=== PATIENT | male | born 1980 | race Caucasian/White ===

== ENCOUNTER 2019-06-23 08:26 | Emergency (ER) | payer MEDICAID ==
[~2019-06-23] VITALS: Ht 177.8 cm; Wt 70.0 kg
[2019-06-23 08:40] VITALS: BP 154/96
[2019-06-23] MEDS ORDERED: TETRACAINE 0.5% OPHTH DROPS 4ML LEFTEYE ONE (09:45)
[2019-06-23] MEDS ORDERED: FLUORESCEIN SODIUM 1MG/STRIP LEFTEYE ONE (09:45)
== END 2019-06-23 10:37 | disposition home or self-care (01) ==
LOC: ER 08:26
DX: H05.012 Cellulitis of left orbit (principal); I10 Essential (primary) hypertension; E78.5 Hyperlipidemia, unspecified; Z88.8 Allergy status to other drugs, medicaments and biological substances; Z94.0 Kidney transplant status; Z94.4 Liver transplant status
CPT/HCPCS: 99283

== ENCOUNTER 2019-06-24 20:14 | Inpatient (IN) | payer MEDICAID ==
[~2019-06-24] VITALS: Ht 180.3 cm; Wt 64.9 kg
[2019-06-24] MEDS ORDERED: SODIUM CHLORIDE 0.9% 1,000 ML IV ONE (21:34)
[2019-06-24 22:08] LABS: BASOPHILS % 1.3 % (0.0-2.0); EOSINOPHILS % 11.5 % (0.0-5.0); HEMATOCRIT. 25.5 % (42.0-52.0); HEMOGLOBIN. 8.9 g/dL (14.0-18.0); LYMPHOCYTES % 35.7 % (20.0-50.0); MEAN CORPUSCULAR HEMOGLOBIN 35.1 pg (28.0-32.0); MEAN CORPUSCULAR VOLUME 100.7 fL (80.0-94.0); MEAN PLATELET VOLUME 9.7 fl (7.4-10.4); NEUTROPHILS % 42.5 % (40.0-76.0); PLATELET 91 x1000/uL (130-400); RED BLOOD CELL COUNT 2.53 mill/uL (4.7-6.1); RED CELL DISTRIBUTION WIDTH 15.2 % (11.6-14.6)
[2019-06-24 22:10] LABS: CHLORIDE 107 mEq/L (98-107)
[2019-06-24 22:12] LABS: INR 1.1; PARTIAL THROMBOPLASTIN TIME 31.1 sec (23.4-31.0); PROTHROMBIN TIME 11.2 sec (9.6-11.0)
[2019-06-24 22:17] LABS: PHOSPHORUS 5.7 mg/dL (2.5-4.9)
[2019-06-24 22:26] LABS: CLARITY URINE CLEAR (CLEAR); COLOR URINE YELLOW (YELLOW); KETONES URINE NEGATIVE (NEGATIVE); LEUKOCYTE ESTERASE URINE NEGATIVE (NEGATIVE); NITRITE URINE NEGATIVE (NEGATIVE); OCCULT BLOOD URINE 1+ (NEGATIVE); PH URINE 6.5 (4.5-8.0); PROTEIN URINE 1+ (NEGATIVE); SPECIFIC GRAVITY URINE 1.004 (1.005-1.030); UROBILINOGEN URINE 0.2 E.U./dL (0.2-1.0)
[2019-06-24 22:49] LABS: BG CARBOXYHEMOGLOBIN 0.3 % (0.5-1.5); BG DEOXYHEMOGLOBIN 2.5 % (0.0-5.0); BG FRACTION INSPIRED OXYGEN 21; BG HCO3 ACT 13.1 mmol/L (22.0-26.0); BG OXYGEN SATURATION 97.5 % (92.0-98.5); BG OXYHEMOGLOBIN 97.2 % (94.0-97.0); BG PCO2 30.6 mmHg (35.0-45.0); BG PH 7.248 (7.350-7.450); BG PO2 113.3 mmHg (75.0-100.0); BG SAMPLE SITE RIGHT RADIAL; BG TOTAL HEMOGLOBIN 8.6 g/dL (12.0-18.0); BG VENT MODE ROOM AIR
[2019-06-24] MEDS ORDERED: HYDROCODONE/ACETAMINOPHEN 5/325MG TABLET PO ONE (23:15)
[2019-06-24] MEDS ORDERED: SODIUM BICARBONATE 8.4% 1 MEQ/ML 50ML SYR IV ONE (23:15)
[2019-06-25] VITALS (16 sets, daily range): BP systolic 120–193; BP diastolic 81–114
[2019-06-25] MEDS ORDERED: LEVO112T7 PO (01:41)
[2019-06-25] MEDS ORDERED: NEOM7.5D8 LEFTEYE (01:41)
[2019-06-25] MEDS ORDERED: TYLENOL CODEINE PO (01:41)
[2019-06-25] MEDS ORDERED: PROG1 MT (01:41)
[2019-06-25] MEDS ORDERED: CEPH500C2 PO (01:41)
[2019-06-25] MEDS ORDERED: CLONIDINE 0.1MG TABLET PO PRN (02:15)
[2019-06-25 06:48] LABS: HEMATOCRIT 23.4 % (42.0-52.0); HEMOGLOBIN 8.1 g/dL (14.0-18.0); MEAN CORPUSCULAR HEMOGLOBIN 34.9 pg (28.0-32.0); MEAN CORPUSCULAR VOLUME 100.2 fL (80.0-94.0); PLATELET 79 x1000/uL (130-400); RED BLOOD CELL COUNT 2.34 mill/uL (4.7-6.1); RED CELL DISTRIBUTION WIDTH 15.4 % (11.6-14.6)
[2019-06-25] MEDS: CEPHALEXIN 250MG CAPSULE PO SCH (08:18)
[2019-06-25] MEDS: TACROLIMUS 1MG CAPSULE PO SCH ×2 (08:19→17:37)
[2019-06-25] MEDS: HYDROCODONE/ACETAMINOPHEN 10/325MG TABLET PO PRN (08:21)
[2019-06-25] MEDS: NEOMYCIN LEFTEYE SCH ×2 (08:22→17:37)
[2019-06-25] MEDS: POLYMYXIN B LEFTEYE SCH ×2 (08:22→17:37)
[2019-06-25] MEDS: DEXAMETHASONE LEFTEYE SCH ×2 (08:22→17:37)
[2019-06-25] MEDS: LEVOTHYROXINE SODIUM 112MCG TABLET PO SCH (09:40)
[2019-06-25 11:01] LABS: TOTAL IRON BINDING CAPACITY 230 ug/dL (250-450)
[2019-06-25 11:19] LABS: FOLIC ACID (FOLATE) SERUM >20 ng/mL ng/mL (>5.38)
[2019-06-25 11:30] LABS: VITAMIN B12 SERUM 641 pg/mL (211-911)
[2019-06-25] MEDS ORDERED: FENTANYL CITRATE/PF 50MCG/ML 2ML VIAL ONE (11:39)
[2019-06-25] MEDS ORDERED: SODIUM BICARBONATE 4% (2.4MEQ) 5ML VIAL IV ONE (11:39)
[2019-06-25] MEDS ORDERED: LIDOCAINE HCL 1% 20ML VIAL (Pyxis) INJ ONE (11:39)
[2019-06-25 13:21] LABS: PHOSPHORUS 5.6 mg/dL (2.5-4.9)
[2019-06-25] MEDS ORDERED: FENTANYL CITRATE/PF 50MCG/ML 2ML VIAL IV ONE (13:30)
[2019-06-25] MEDS: METHYLPREDNISOLONE SOD SUCC 125 MG/2 ML VIAL IV SCH ×3 (14:00→21:04)
[2019-06-25] MEDS: AMLODIPINE 5MG TABLET PO SCH ×2 (17:00→17:38)
[2019-06-25] MEDS: SODIUM CHLORIDE 0.9% 1,000 ML IV SCH ×2 (17:36→23:15)
[2019-06-25] MEDS: SODIUM BICARBONATE 650 MG TABLET PO SCH (17:38)
[2019-06-25] MEDS ORDERED: EPOETIN ALFA 10000UNITS/ML VIAL SUBCUT NR (21:00)
[2019-06-25] MEDS: ATORVASTATIN CALCIUM 20MG TABLET PO SCH (21:04)
[2019-06-26] VITALS: BP 142/93
[2019-06-26 04:00] VITALS: BP 123/83
[2019-06-26] MEDS: METHYLPREDNISOLONE SOD SUCC 125 MG/2 ML VIAL IV SCH ×3 (05:20→21:25)
[2019-06-26] MEDS: HYDROCODONE/ACETAMINOPHEN 10/325MG TABLET PO PRN ×2 (05:52→18:29)
[2019-06-26 06:20] LABS: BASOPHILS % 0.1 % (0.0-2.0); EOSINOPHILS % 0.3 % (0.0-5.0); HEMATOCRIT. 25.7 % (42.0-52.0); LYMPHOCYTES % 20.8 % (20.0-50.0); MEAN CORPUSCULAR HEMOGLOBIN 34.9 pg (28.0-32.0); MEAN PLATELET VOLUME 9.9 fl (7.4-10.4); MONOCYTES % 1.7 % (2.0-8.0); NEUTROPHILS % 77.1 % (40.0-76.0); PLATELET 90 x1000/uL (130-400); RED BLOOD CELL COUNT 2.57 mill/uL (4.7-6.1); RED CELL DISTRIBUTION WIDTH 15.3 % (11.6-14.6)
[2019-06-26] MEDS: LEVOTHYROXINE SODIUM 112MCG TABLET PO SCH (07:49)
[2019-06-26] MEDS: CEPHALEXIN 250MG CAPSULE PO SCH (08:37)
[2019-06-26] MEDS: TACROLIMUS 1MG CAPSULE PO SCH ×2 (08:37→18:29)
[2019-06-26] MEDS: SODIUM BICARBONATE 650 MG TABLET PO SCH ×3 (08:37→18:29)
[2019-06-26] MEDS: NEOMYCIN LEFTEYE SCH ×2 (08:38→18:30)
[2019-06-26] MEDS: DEXAMETHASONE LEFTEYE SCH ×2 (08:38→18:30)
[2019-06-26] MEDS: POLYMYXIN B LEFTEYE SCH ×2 (08:38→18:30)
[2019-06-26] MEDS: AMLODIPINE 5MG TABLET PO SCH ×2 (08:38→18:28)
[2019-06-26] MEDS ORDERED: AMLODIPINE 2.5MG TABLET PO SCH (09:00)
[2019-06-26] MEDS: SEVELAMER CARBONATE 800 MG TABLET PO SCH ×3 (09:34→18:29)
[2019-06-26 12:00] VITALS: BP 131/82
[2019-06-26] MEDS: SODIUM CHLORIDE 0.9% 1,000 ML IV SCH (12:55)
[2019-06-26 17:58] VITALS: BP 127/91
[2019-06-26] MEDS ORDERED: LACTULOSE 20G/30ML UDC PO PRN (19:30)
[2019-06-26 20:00] VITALS: BP 130/85
[2019-06-26] MEDS: ATORVASTATIN CALCIUM 20MG TABLET PO SCH (20:46)
[2019-06-27] VITALS: BP 125/82
[2019-06-27 04:00] VITALS: BP 125/82
[2019-06-27] MEDS: SODIUM CHLORIDE 0.9% 1,000 ML IV SCH ×2 (04:44→16:41)
[2019-06-27] MEDS: METHYLPREDNISOLONE SOD SUCC 125 MG/2 ML VIAL IV SCH ×3 (05:08→21:02)
[2019-06-27 07:08] LABS: BASOPHILS % 0.1 % (0.0-2.0); HEMATOCRIT. 25.6 % (42.0-52.0); HEMOGLOBIN. 8.8 g/dL (14.0-18.0); MEAN CORPUSCULAR HEMOGLOBIN 35.1 pg (28.0-32.0); MEAN CORPUSCULAR VOLUME 102.2 fL (80.0-94.0); MEAN PLATELET VOLUME 10.2 fl (7.4-10.4); MONOCYTES % 2.8 % (2.0-8.0); NEUTROPHILS % 87.1 % (40.0-76.0); PLATELET 90 x1000/uL (130-400); RED CELL DISTRIBUTION WIDTH 15.7 % (11.6-14.6)
[2019-06-27 08:00] VITALS: BP 135/84
[2019-06-27] MEDS: SEVELAMER CARBONATE 800 MG TABLET PO SCH ×3 (08:05→16:42)
[2019-06-27] MEDS: NEOMYCIN LEFTEYE SCH ×2 (09:46→16:41)
[2019-06-27] MEDS: DEXAMETHASONE LEFTEYE SCH ×2 (09:46→16:41)
[2019-06-27] MEDS: AMLODIPINE 5MG TABLET PO SCH ×2 (09:46→16:42)
[2019-06-27] MEDS: SODIUM BICARBONATE 650 MG TABLET PO SCH ×3 (09:46→16:41)
[2019-06-27] MEDS: CEPHALEXIN 250MG CAPSULE PO SCH (09:46)
[2019-06-27] MEDS: POLYMYXIN B LEFTEYE SCH ×2 (09:46→16:41)
[2019-06-27] MEDS: TACROLIMUS 1MG CAPSULE PO SCH ×2 (09:47→16:42)
[2019-06-27] MEDS: LEVOTHYROXINE SODIUM 112MCG TABLET PO SCH (09:47)
[2019-06-27] MEDS: HYDROCODONE/ACETAMINOPHEN 10/325MG TABLET PO PRN ×2 (09:47→22:19)
[2019-06-27 12:00] VITALS: BP 127/84
[2019-06-27 16:00] VITALS: BP 118/71
[2019-06-27 20:00] VITALS: BP 123/79
[2019-06-27] MEDS: ATORVASTATIN CALCIUM 20MG TABLET PO SCH (21:02)
[2019-06-28] VITALS: BP 116/81
[2019-06-28 04:00] VITALS: BP 125/82
[2019-06-28] MEDS: SODIUM CHLORIDE 0.9% 1,000 ML IV SCH ×2 (05:27→19:29)
[2019-06-28] MEDS: METHYLPREDNISOLONE SOD SUCC 125 MG/2 ML VIAL IV SCH ×3 (05:28→21:42)
[2019-06-28 07:21] LABS: BASOPHILS % 0.1 % (0.0-2.0); HEMOGLOBIN. 9.3 g/dL (14.0-18.0); LYMPHOCYTES % 10.8 % (20.0-50.0); MEAN CORPUSCULAR HEMOGLOBIN 34.9 pg (28.0-32.0); MEAN CORPUSCULAR VOLUME 101.4 fL (80.0-94.0); MEAN PLATELET VOLUME 10.1 fl (7.4-10.4); MONOCYTES % 2.5 % (2.0-8.0); NEUTROPHILS % 86.6 % (40.0-76.0); PLATELET 115 x1000/uL (130-400); RED BLOOD CELL COUNT 2.66 mill/uL (4.7-6.1); RED CELL DISTRIBUTION WIDTH 15.9 % (11.6-14.6)
[2019-06-28 08:00] VITALS: BP 130/89
[2019-06-28] MEDS ORDERED: LISINOPRIL 10MG TABLET PO SCH (09:00)
[2019-06-28] MEDS: SODIUM BICARBONATE 650 MG TABLET PO SCH ×3 (09:49→16:51)
[2019-06-28] MEDS: LEVOTHYROXINE SODIUM 112MCG TABLET PO SCH (09:50)
[2019-06-28] MEDS: CEPHALEXIN 250MG CAPSULE PO SCH (09:50)
[2019-06-28] MEDS: SEVELAMER CARBONATE 800 MG TABLET PO SCH ×3 (09:50→16:51)
[2019-06-28] MEDS: TACROLIMUS 1MG CAPSULE PO SCH ×2 (09:50→16:51)
[2019-06-28] MEDS: POLYMYXIN B LEFTEYE SCH ×2 (09:51→16:51)
[2019-06-28] MEDS: DEXAMETHASONE LEFTEYE SCH ×2 (09:51→16:51)
[2019-06-28] MEDS: NEOMYCIN LEFTEYE SCH ×2 (09:51→16:51)
[2019-06-28 12:00] VITALS: BP 129/87
[2019-06-28] MEDS: HYDROCODONE/ACETAMINOPHEN 10/325MG TABLET PO PRN (12:29)
[2019-06-28] MEDS: CALCITRIOL 0.25MCG CAPSULE PO SCH (13:44)
[2019-06-28 16:00] VITALS: BP 113/78
[2019-06-28 20:00] VITALS: BP 108/68
[2019-06-28] MEDS: ATORVASTATIN CALCIUM 20MG TABLET PO SCH (21:42)
[2019-06-29] VITALS (7 sets, daily range): BP systolic 117–135; BP diastolic 60–86
[2019-06-29] MEDS: HYDROCODONE/ACETAMINOPHEN 10/325MG TABLET PO PRN (02:15)
[2019-06-29] MEDS: METHYLPREDNISOLONE SOD SUCC 125 MG/2 ML VIAL IV SCH ×2 (06:35→13:44)
[2019-06-29] MEDS: CALCITRIOL 0.25MCG CAPSULE PO SCH (09:41)
[2019-06-29] MEDS: SEVELAMER CARBONATE 800 MG TABLET PO SCH ×3 (09:42→16:53)
[2019-06-29] MEDS: LEVOTHYROXINE SODIUM 112MCG TABLET PO SCH (09:42)
[2019-06-29] MEDS: CEPHALEXIN 250MG CAPSULE PO SCH (09:42)
[2019-06-29] MEDS: SODIUM BICARBONATE 650 MG TABLET PO SCH ×3 (09:42→16:53)
[2019-06-29] MEDS: TACROLIMUS 1MG CAPSULE PO SCH ×2 (09:42→16:53)
[2019-06-29] MEDS: POLYMYXIN B LEFTEYE SCH ×2 (09:43→16:52)
[2019-06-29] MEDS: NEOMYCIN LEFTEYE SCH ×2 (09:43→16:52)
[2019-06-29] MEDS: DEXAMETHASONE LEFTEYE SCH ×2 (09:43→16:52)
[2019-06-29] MEDS: SODIUM CHLORIDE 0.9% 1,000 ML IV SCH (09:43)
[2019-06-29] MEDS ORDERED: SODI650T PO (19:15)
[2019-06-29] MEDS ORDERED: CALC0.253 PO (19:15)
[2019-06-29] MEDS ORDERED: P20 PO (19:15)
[2019-06-29] MEDS ORDERED: SEVE800T8 PO (19:15)
[2019-06-30] MEDS ORDERED: PREDNISONE 20MG TABLET PO ONE (09:00)
== END 2019-06-29 20:05 | disposition home or self-care (01) | DRG 466 ==
LOC: ER 20:14 → 6WST 23:12 → EDBEDREQ 23:19 → EDBEDREQTM 23:19 → EDBEDREQSVC 23:19 → ENRESERV 06-25 00:02
PROVIDERS: ADMIT Internal Medicine; ATTEND Internal Medicine
PROC: 0TB33ZX Excision of Right Kidney Pelvis, Percutaneous Approach, Diagnostic (ICD-10-PCS; principal; 2019-06-25)
DX: T86.19 Other complication of kidney transplant (principal); D61.818 Other pancytopenia; N17.9 Acute kidney failure, unspecified; E87.2 Acidosis; N18.4 Chronic kidney disease, stage 4 (severe); K72.90 Hepatic failure, unspecified without coma; Z94.4 Liver transplant status; E87.1 Hypo-osmolality and hyponatremia; K74.60 Unspecified cirrhosis of liver; D63.8 Anemia in other chronic diseases classified elsewhere; E03.9 Hypothyroidism, unspecified; N25.81 Secondary hyperparathyroidism of renal origin; Z60.2 Problems related to living alone; E78.5 Hyperlipidemia, unspecified; I12.9 Hypertensive chronic kidney disease with stage 1 through stage 4 chronic kidney disease, or unspecified chronic kidney disease; E78.00 Pure hypercholesterolemia, unspecified; Y83.0 Surgical operation with transplant of whole organ as the cause of abnormal reaction of the patient, or of later complication, without mention of misadventure at the time of the procedure; Z99.2 Dependence on renal dialysis; Z90.49 Acquired absence of other specified parts of digestive tract; Z88.8 Allergy status to other drugs, medicaments and biological substances
CPT/HCPCS: 36415; 36600; 71045; 76700; 76942; 80048; 80197; 81003; 82375; 82607; 82652; 82746; 82805; 83540; 83550; 83735; 83880; 83970; 84100; 84484; 85027; 88305; 88346; 88348; 93005; 93970; 96361; 96374; 99291; J0885; J2930; J3010; J3490; J7030; J7507

== ENCOUNTER 2019-07-30 07:59 | Inpatient (IN) | payer MEDICAID ==
[~2019-07-30] VITALS: Ht 180.3 cm; Wt 63.5 kg
[~2019-07-30 07:59] MED LIST: CALC0.253 PO; CEPH500C2 PO; LEVO112T7 PO; NEOM7.5D8 LEFTEYE; P20 PO; PROG1 MT; SEVE800T8 PO; SODI650T PO; TYLENOL CODEINE PO
[2019-07-30] MEDS ORDERED: SODIUM CHLORIDE 0.9% 1,000 ML IV ONE (10:16)
[2019-07-30 10:52] LABS: HEMATOCRIT. 32.9 % (42.0-52.0); HEMOGLOBIN. 10.9 g/dL (14.0-18.0); MEAN CORPUSCULAR HEMOGLOBIN 35.1 pg (28.0-32.0); MEAN CORPUSCULAR VOLUME 105.7 fL (80.0-94.0); MEAN PLATELET VOLUME 10.1 fl (7.4-10.4); PLATELET 76 x1000/uL (130-400); RED BLOOD CELL COUNT 3.11 mill/uL (4.7-6.1); RED CELL DISTRIBUTION WIDTH 14.7 % (11.6-14.6)
[2019-07-30 10:53] LABS: CHLORIDE 113 mEq/L (98-107)
[2019-07-30 10:58] LABS: INR 1.2; PARTIAL THROMBOPLASTIN TIME 28.5 sec (23.4-31.0); PROTHROMBIN TIME 12.4 sec (9.6-11.0)
[2019-07-30 10:59] LABS: PHOSPHORUS 5.2 mg/dL (2.5-4.9)
[2019-07-30 11:13] LABS: CLARITY URINE CLEAR (CLEAR); COLOR URINE YELLOW (YELLOW); KETONES URINE NEGATIVE (NEGATIVE); LEUKOCYTE ESTERASE URINE NEGATIVE (NEGATIVE); NITRITE URINE NEGATIVE (NEGATIVE); OCCULT BLOOD URINE 1+ (NEGATIVE); PROTEIN URINE 2+ (NEGATIVE); SPECIFIC GRAVITY URINE 1.009 (1.005-1.030); UROBILINOGEN URINE 0.2 E.U./dL (0.2-1.0)
[2019-07-30 11:15] LABS: PLATELET ESTIMATE DECREASED
[2019-07-30] MEDS ORDERED: FUROSEMIDE 40MG/4ML VIAL IVP ONE (11:15)
[2019-07-30] MEDS ORDERED: FUROSEMIDE 100MG/10ML VIAL IV STA (11:57)
[2019-07-30] MEDS ORDERED: SODIUM BICARBONATE 8.4% 1 MEQ/ML 50ML SYR IV ONE (12:00)
[2019-07-30] MEDS ORDERED: CALCIUM CHLORIDE 1GM/10ML SYR IV ONE (12:00)
[2019-07-30] MEDS ORDERED: DEXTROSE 50% WATER 50ML SYRINGE IV ONE (12:00)
[2019-07-30] MEDS ORDERED: INSULIN REGULAR (HUMULIN R) 300UNITS/3ML IV ONE (12:00)
[2019-07-30] MEDS ORDERED: SODIUM POLYSTYRENE SULFONATE 15 G/60 ML BOT PO ONE (12:00)
[2019-07-30] MEDS ORDERED: ALBUTEROL (0.083%) 2.5MG/3ML NEB HHN ONE (12:00)
[2019-07-30 15:44] LABS: *BARBITURATES SCREEN URINE NEGATIVE (NEGATIVE); *BENZODIAZEPINES SCREEN URINE NEGATIVE (NEGATIVE); *COCAINE SCREEN URINE NEGATIVE (NEGATIVE); METHADONE URINE SCREEN NEGATIVE (NEGATIVE)
[2019-07-30 15:45] LABS: CANNABINOID URINE SCREEN PRESUMTIVE POSITIVE (NEGATIVE); OPIATES URINE SCREEN NEGATIVE (NEGATIVE); PHENCYCLIDINE URINE SCREEN NEGATIVE (NEGATIVE)
[2019-07-30] MEDS ORDERED: KETOROLAC 30MG/ML VIAL IV ONE (15:45)
[2019-07-30 15:51] LABS: *AMPHETAMINES SCREEN URINE NEGATIVE (NEGATIVE)
[2019-07-30 18:18] VITALS: BP 121/79
[2019-07-30] MEDS ORDERED: LEVO112T7 PO (18:18)
[2019-07-30] MEDS ORDERED: FURO40TA5 MT (18:18)
[2019-07-30] MEDS ORDERED: ATOR20TA65 MT (18:18)
[2019-07-30] MEDS ORDERED: LISI-604 MT (18:18)
[2019-07-30] MEDS ORDERED: P20 PO (18:18)
[2019-07-30] MEDS ORDERED: CALC0.253 PO (18:18)
[2019-07-30] MEDS ORDERED: FAMO20TA8 PO (18:18)
[2019-07-30] MEDS ORDERED: PROG1 PO (18:18)
[2019-07-30] MEDS ORDERED: CLONIDINE 0.1MG TABLET PO PRN (19:00)
[2019-07-30] MEDS: TACROLIMUS 1MG CAPSULE PO SCH (19:00)
[2019-07-30] MEDS ORDERED: MAGNESIUM/ALUMINUM HYDROXIDE/SIMETHICONE 30ML UDC PO PRN (19:00)
[2019-07-30] MEDS ORDERED: IPRATROPIUM/ALBUTEROL 0.5-3(2.5)MG/3ML NEB NEB PRN (19:00)
[2019-07-30] MEDS ORDERED: ENOXAPARIN 40MG/0.4ML SYR SUBCUT SCH (19:00)
[2019-07-30] MEDS ORDERED: DOCUSATE SODIUM 100MG CAPSULE PO PRN (19:00)
[2019-07-30 20:00] VITALS: BP 117/79
[2019-07-30] MEDS: DILTIAZEM HCL 30MG TABLET PO SCH (20:35)
[2019-07-30] MEDS ORDERED: SODIUM POLYSTYRENE SULFONATE 15 G/60 ML BOT PO NR (21:00)
[2019-07-30] MEDS: ATORVASTATIN CALCIUM 20MG TABLET PO SCH (21:23)
[2019-07-30 21:38] LABS: INR 1.2; PARTIAL THROMBOPLASTIN TIME 27.8 sec (23.4-31.0); PROTHROMBIN TIME 12.4 sec (9.6-11.0)
[2019-07-31] VITALS: BP 120/58
[2019-07-31] MEDS: HYDROCODONE/ACETAMINOPHEN 5/325MG TABLET PO PRN ×3 (00:23→14:53)
[2019-07-31] MEDS: DILTIAZEM HCL 30MG TABLET PO SCH ×4 (00:24→18:11)
[2019-07-31 04:00] VITALS: BP 111/82
[2019-07-31 07:36] LABS: BASOPHILS % 0.1 % (0.0-2.0); EOSINOPHILS % 0.6 % (0.0-5.0); HEMATOCRIT. 30.2 % (42.0-52.0); HEMOGLOBIN. 9.9 g/dL (14.0-18.0); LYMPHOCYTES % 28.5 % (20.0-50.0); MEAN CORPUSCULAR HEMOGLOBIN 34.6 pg (28.0-32.0); MEAN CORPUSCULAR VOLUME 105.6 fL (80.0-94.0); MEAN PLATELET VOLUME 9.8 fl (7.4-10.4); MONOCYTES % 12.1 % (2.0-8.0); NEUTROPHILS % 58.7 % (40.0-76.0); PLATELET 64 x1000/uL (130-400); RED BLOOD CELL COUNT 2.86 mill/uL (4.7-6.1); RED CELL DISTRIBUTION WIDTH 14.9 % (11.6-14.6)
[2019-07-31 08:00] VITALS: BP 126/69
[2019-07-31 08:14] LABS: PHOSPHORUS 6.2 mg/dL (2.5-4.9)
[2019-07-31] MEDS: FUROSEMIDE 40MG/4ML VIAL IVP SCH ×2 (08:49→18:10)
[2019-07-31] MEDS: LEVOTHYROXINE SODIUM 112MCG TABLET PO SCH (08:50)
[2019-07-31] MEDS: PREDNISONE 20MG TABLET PO SCH (08:50)
[2019-07-31] MEDS: TACROLIMUS 1MG CAPSULE PO SCH ×2 (08:50→18:13)
[2019-07-31] MEDS: CALCITRIOL 0.25MCG CAPSULE PO SCH (08:50)
[2019-07-31 12:00] VITALS: BP 125/67
[2019-07-31 16:00] VITALS: BP 126/68
[2019-07-31] MEDS: SODIUM BICARBONATE 650 MG TABLET PO SCH (18:10)
[2019-07-31 20:00] VITALS: BP 91/50
[2019-07-31] MEDS: ATORVASTATIN CALCIUM 20MG TABLET PO SCH (21:30)
[2019-08-01] VITALS: BP 122/59
[2019-08-01] MEDS: DILTIAZEM HCL 30MG TABLET PO SCH ×4 (00:51→17:32)
[2019-08-01] MEDS: HYDROCODONE/ACETAMINOPHEN 5/325MG TABLET PO PRN ×3 (00:53→21:07)
[2019-08-01 04:00] VITALS: BP 99/63
[2019-08-01 06:23] LABS: HEMATOCRIT. 28.9 % (42.0-52.0); HEMOGLOBIN. 9.5 g/dL (14.0-18.0); LYMPHOCYTES % 9.3 % (20.0-50.0); MEAN CORPUSCULAR HEMOGLOBIN 34.4 pg (28.0-32.0); MEAN CORPUSCULAR VOLUME 104.4 fL (80.0-94.0); MEAN PLATELET VOLUME 10.5 fl (7.4-10.4); MONOCYTES % 8.8 % (2.0-8.0); NEUTROPHILS % 81.9 % (40.0-76.0); PLATELET 64 x1000/uL (130-400); RED BLOOD CELL COUNT 2.77 mill/uL (4.7-6.1); RED CELL DISTRIBUTION WIDTH 14.6 % (11.6-14.6)
[2019-08-01 08:00] VITALS: BP 120/69
[2019-08-01] MEDS: LEVOTHYROXINE SODIUM 112MCG TABLET PO SCH (08:42)
[2019-08-01] MEDS: SODIUM BICARBONATE 650 MG TABLET PO SCH ×3 (08:42→17:32)
[2019-08-01] MEDS: CALCITRIOL 0.25MCG CAPSULE PO SCH (08:42)
[2019-08-01] MEDS: PREDNISONE 20MG TABLET PO SCH (08:42)
[2019-08-01] MEDS: FUROSEMIDE 40MG/4ML VIAL IVP SCH (08:42)
[2019-08-01] MEDS: TACROLIMUS 1MG CAPSULE PO SCH ×2 (08:43→17:32)
[2019-08-01] MEDS ORDERED: ENOXAPARIN 40MG/0.4ML SYR SUBCUT SCH (09:30)
[2019-08-01 12:00] VITALS: BP 123/68
[2019-08-01 20:00] VITALS: BP 121/85
[2019-08-01] MEDS: ATORVASTATIN CALCIUM 20MG TABLET PO SCH (21:07)
[2019-08-02] VITALS (7 sets, daily range): BP systolic 117–127; BP diastolic 68–82
[2019-08-02] MEDS: DILTIAZEM HCL 30MG TABLET PO SCH ×4 (00:43→17:53)
[2019-08-02 06:17] LABS: BASOPHILS % 0.1 % (0.0-2.0); HEMOGLOBIN. 10.2 g/dL (14.0-18.0); LYMPHOCYTES % 9.3 % (20.0-50.0); MEAN CORPUSCULAR HEMOGLOBIN 34.9 pg (28.0-32.0); MEAN CORPUSCULAR VOLUME 103.1 fL (80.0-94.0); MEAN PLATELET VOLUME 9.9 fl (7.4-10.4); MONOCYTES % 8.5 % (2.0-8.0); NEUTROPHILS % 82.1 % (40.0-76.0); PLATELET 57 x1000/uL (130-400); RED BLOOD CELL COUNT 2.91 mill/uL (4.7-6.1); RED CELL DISTRIBUTION WIDTH 14.2 % (11.6-14.6)
[2019-08-02] MEDS: TACROLIMUS 1MG CAPSULE PO SCH ×2 (09:00→18:00)
[2019-08-02] MEDS: LEVOTHYROXINE SODIUM 112MCG TABLET PO SCH (09:11)
[2019-08-02] MEDS: PREDNISONE 20MG TABLET PO SCH (09:11)
[2019-08-02] MEDS: SODIUM BICARBONATE 650 MG TABLET PO SCH ×3 (09:11→16:38)
[2019-08-02] MEDS: CALCITRIOL 0.25MCG CAPSULE PO SCH (09:12)
[2019-08-02] MEDS: HYDROCODONE/ACETAMINOPHEN 5/325MG TABLET PO PRN ×2 (11:14→21:20)
[2019-08-02] MEDS ORDERED: CALC0.253 PO (15:40)
[2019-08-02] MEDS ORDERED: DILT240C91 MT (15:41)
[2019-08-02] MEDS: ATORVASTATIN CALCIUM 20MG TABLET PO SCH (21:17)
[2019-08-03] VITALS: BP 110/73
[2019-08-03] MEDS: DILTIAZEM HCL 30MG TABLET PO SCH ×3 (00:25→12:33)
[2019-08-03 04:00] VITALS: BP 128/83
[2019-08-03 07:43] LABS: BASOPHILS % 0.2 % (0.0-2.0); HEMATOCRIT. 29.5 % (42.0-52.0); HEMOGLOBIN. 10.2 g/dL (14.0-18.0); LYMPHOCYTES % 11.2 % (20.0-50.0); MEAN CORPUSCULAR HEMOGLOBIN 35.4 pg (28.0-32.0); MEAN CORPUSCULAR VOLUME 102.4 fL (80.0-94.0); MEAN PLATELET VOLUME 10.6 fl (7.4-10.4); MONOCYTES % 8.1 % (2.0-8.0); NEUTROPHILS % 80.5 % (40.0-76.0); PLATELET 57 x1000/uL (130-400); RED BLOOD CELL COUNT 2.89 mill/uL (4.7-6.1); RED CELL DISTRIBUTION WIDTH 13.7 % (11.6-14.6)
[2019-08-03] MEDS: HYDROCODONE/ACETAMINOPHEN 5/325MG TABLET PO PRN ×2 (07:53→07:54)
[2019-08-03] MEDS: LEVOTHYROXINE SODIUM 112MCG TABLET PO SCH (07:55)
[2019-08-03 08:00] VITALS: BP 129/74
[2019-08-03] MEDS: TACROLIMUS 1MG CAPSULE PO SCH (09:00)
[2019-08-03] MEDS: PREDNISONE 20MG TABLET PO SCH (10:39)
[2019-08-03] MEDS: SODIUM BICARBONATE 650 MG TABLET PO SCH ×2 (10:39→12:29)
[2019-08-03] MEDS: CALCITRIOL 0.25MCG CAPSULE PO SCH (10:39)
[2019-08-03 12:00] VITALS: BP 125/74
[2019-08-03 12:11] VITALS: BP 110/74
[2019-08-03 12:16] VITALS: BP 110/74
[2019-08-03] MEDS ORDERED: FUROSEMIDE 40MG TABLET PO SCH (21:00)
== END 2019-08-03 12:58 | disposition home or self-care (01) | DRG 466 ==
LOC: ER 07:59 → 7WST 12:22 → EDBEDREQ 12:40 → ENRESERV 15:36
PROVIDERS: ADMIT Internal Medicine; ATTEND Internal Medicine
DX: T86.11 Kidney transplant rejection (principal); D61.818 Other pancytopenia; D69.6 Thrombocytopenia, unspecified; E87.2 Acidosis; N17.9 Acute kidney failure, unspecified; Z94.4 Liver transplant status; E87.5 Hyperkalemia; N18.4 Chronic kidney disease, stage 4 (severe); E87.8 Other disorders of electrolyte and fluid balance, not elsewhere classified; I48.91 Unspecified atrial fibrillation; N25.81 Secondary hyperparathyroidism of renal origin; E03.9 Hypothyroidism, unspecified; E78.5 Hyperlipidemia, unspecified; E78.00 Pure hypercholesterolemia, unspecified; I12.9 Hypertensive chronic kidney disease with stage 1 through stage 4 chronic kidney disease, or unspecified chronic kidney disease; N50.89 Other specified disorders of the male genital organs; Y83.0 Surgical operation with transplant of whole organ as the cause of abnormal reaction of the patient, or of later complication, without mention of misadventure at the time of the procedure; Z88.8 Allergy status to other drugs, medicaments and biological substances; Z79.899 Other long term (current) drug therapy
CPT/HCPCS: 36415; 71045; 80048; 80197; 80305; 81003; 82962; 83735; 83880; 84100; 84132; 84443; 84484; 93005; 93306; 93970; 94640; 96374; 97161; 97166; 99285; C1893; J1815; J1885; J1940; J3490; J7030; J7507; J7512; J7611

== ENCOUNTER 2020-01-24 17:40 | Inpatient (IN) | payer MEDICAID ==
[~2020-01-24] VITALS: Ht 182.9 cm; Wt 61.7 kg
[~2020-01-24 17:40] MED LIST changes: +ATOR20TA65 MT; -CEPH500C2 PO; +DILT240C91 MT; +FAMO20TA8 PO; +FURO40TA5 MT; +LISI-604 MT; +PROG1 PO
[2020-01-24] MEDS ORDERED: ALTEPLASE 2MG/VIAL ITC ONE (18:30)
[2020-01-24 18:56] LABS: HEMATOCRIT. 34.8 % (42.0-52.0); HEMOGLOBIN. 12.1 g/dL (14.0-18.0); MEAN CORPUSCULAR HEMOGLOBIN 33.4 pg (28.0-32.0); MEAN CORPUSCULAR VOLUME 96.7 fL (80.0-94.0); MEAN PLATELET VOLUME 8.6 fl (7.4-10.4); PLATELET 106 x1000/uL (130-400); RED CELL DISTRIBUTION WIDTH 16.5 % (11.6-14.6)
[2020-01-24 19:06] LABS: CHLORIDE 101 mEq/L (98-107)
[2020-01-24] MEDS ORDERED: KETOROLAC 30MG/ML VIAL IV NR (19:15)
[2020-01-24 19:17] LABS: PLATELET ESTIMATE DECREASED
[2020-01-24] MEDS ORDERED: DOCUSATE SODIUM 100MG CAPSULE PO PRN (22:30)
[2020-01-24] MEDS ORDERED: ACETAMINOPHEN 325MG TABLET PO PRN (22:30)
[2020-01-24] MEDS ORDERED: CLONIDINE 0.1MG TABLET PO PRN (22:30)
[2020-01-24] MEDS ORDERED: IPRATROPIUM/ALBUTEROL 0.5-3(2.5)MG/3ML NEB NEB PRN (22:30)
[2020-01-24] MEDS: HYDROCODONE/ACETAMINOPHEN 5/325MG TABLET PO PRN (23:08)
[2020-01-25] VITALS (15 sets, daily range): BP systolic 110–154; BP diastolic 65–98
[2020-01-25] MEDS: ONDANSETRON HCL 4MG/2ML INJ IV PRN (00:39)
[2020-01-25] MEDS ORDERED: PROG1 PO ×2 (02:20)
[2020-01-25] MEDS ORDERED: ZOLP10TA2 PO (02:24)
[2020-01-25] MEDS: HYDROCODONE/ACETAMINOPHEN 5/325MG TABLET PO PRN ×2 (03:15→20:24)
[2020-01-25] MEDS: HYDROCODONE/ACETAMINOPHEN 10/325MG TABLET PO PRN ×2 (05:28→16:08)
[2020-01-25 06:53] LABS: EOSINOPHILS % 8.7 % (0.0-5.0); HEMATOCRIT. 31.7 % (42.0-52.0); HEMOGLOBIN. 10.9 g/dL (14.0-18.0); LYMPHOCYTES % 51.6 % (20.0-50.0); MEAN CORPUSCULAR HEMOGLOBIN 33.3 pg (28.0-32.0); MEAN CORPUSCULAR VOLUME 97.2 fL (80.0-94.0); MEAN PLATELET VOLUME 8.8 fl (7.4-10.4); MONOCYTES % 14.6 % (2.0-8.0); NEUTROPHILS % 24.1 % (40.0-76.0); PLATELET 103 x1000/uL (130-400); RED BLOOD CELL COUNT 3.26 mill/uL (4.7-6.1)
[2020-01-25 07:06] LABS: CHLORIDE 103 mEq/L (98-107)
[2020-01-25 07:14] LABS: LDL CHOLESTEROL 75 mg/dL (5-100)
[2020-01-25 07:16] LABS: CREATINE KINASE 36 IU/L (39-308); HDL CHOLESTEROL 58 mg/dL (40-59)
[2020-01-25 07:20] LABS: CREATINE KINASE MB FRACTION < 1.0 ng/mL (0.5-3.6)
[2020-01-25] MEDS ORDERED: LEVOTHYROXINE SODIUM 112MCG TABLET PO SCH (07:20)
[2020-01-25] MEDS: TACROLIMUS 1MG CAPSULE PO SCH ×2 (08:23→20:23)
[2020-01-25] MEDS: LISINOPRIL 20MG TABLET PO SCH (08:27)
[2020-01-25 10:35] LABS: INR 1.1; PARTIAL THROMBOPLASTIN TIME 32.4 sec (23.4-31.0); PROTHROMBIN TIME 11.6 sec (9.6-11.0)
[2020-01-25] MEDS ORDERED: CEFAZOLIN 1000MG PREMIX 50 ML IV ONE ×2 (11:45→12:39)
[2020-01-25 12:26] LABS: *AMPHETAMINES SCREEN URINE NEGATIVE (NEGATIVE); *BARBITURATES SCREEN URINE NEGATIVE (NEGATIVE); *BENZODIAZEPINES SCREEN URINE NEGATIVE (NEGATIVE)
[2020-01-25 12:27] LABS: *COCAINE SCREEN URINE NEGATIVE (NEGATIVE); CANNABINOID URINE SCREEN PRESUMTIVE POSITIVE (NEGATIVE); METHADONE URINE SCREEN NEGATIVE (NEGATIVE); OPIATES URINE SCREEN NEGATIVE (NEGATIVE); PHENCYCLIDINE URINE SCREEN NEGATIVE (NEGATIVE)
[2020-01-25] MEDS ORDERED: FENTANYL CITRATE/PF 50MCG/ML 2ML VIAL ONE (12:39)
[2020-01-25] MEDS ORDERED: LIDOCAINE HCL 1% 20ML VIAL (Pyxis) INJ ONE (12:49)
[2020-01-25] MEDS ORDERED: HEPARIN 1000 UNITS/ML 10ML ONE (12:49)
[2020-01-25] MEDS ORDERED: SODIUM BICARBONATE 4% (2.4MEQ) 5ML VIAL IV ONE (12:49)
[2020-01-25] MEDS ORDERED: FENTANYL CITRATE/PF 50MCG/ML 2ML VIAL IV SCH (14:00)
[2020-01-25 14:39] LABS: FOLIC ACID (FOLATE) SERUM 16.4 ng/mL (>5.38)
[2020-01-25 16:56] LABS: CREATINE KINASE MB FRACTION 1.6 ng/mL (0.5-3.6)
[2020-01-25] MEDS: ATORVASTATIN CALCIUM 20MG TABLET PO SCH (20:23)
[2020-01-25] MEDS ORDERED: ZOLPIDEM TARTRATE 5MG TABLET PO PRN (21:00)
[2020-01-26] VITALS: BP 121/79
[2020-01-26 04:00] VITALS: BP 142/88
[2020-01-26] MEDS: LEVOTHYROXINE SODIUM 125MCG TABLET PO SCH (06:13)
[2020-01-26 07:20] LABS: BASOPHILS % 0.9 % (0.0-2.0); HEMATOCRIT. 32.8 % (42.0-52.0); HEMOGLOBIN. 11.2 g/dL (14.0-18.0); LYMPHOCYTES % 42.5 % (20.0-50.0); MEAN CORPUSCULAR HEMOGLOBIN 33.2 pg (28.0-32.0); MEAN CORPUSCULAR VOLUME 97.3 fL (80.0-94.0); MEAN PLATELET VOLUME 8.9 fl (7.4-10.4); MONOCYTES % 13.3 % (2.0-8.0); NEUTROPHILS % 34.3 % (40.0-76.0); PLATELET 98 x1000/uL (130-400); RED BLOOD CELL COUNT 3.37 mill/uL (4.7-6.1); RED CELL DISTRIBUTION WIDTH 16.3 % (11.6-14.6)
[2020-01-26 08:00] VITALS: BP 158/92
[2020-01-26] MEDS: LISINOPRIL 20MG TABLET PO SCH (09:00)
[2020-01-26] MEDS: TACROLIMUS 1MG CAPSULE PO SCH ×2 (09:00→21:10)
[2020-01-26] MEDS: HYDROCODONE/ACETAMINOPHEN 10/325MG TABLET PO PRN (09:20)
[2020-01-26] MEDS: ONDANSETRON HCL 4MG/2ML INJ IV PRN (11:18)
[2020-01-26 12:00] VITALS: BP 128/88
[2020-01-26] MEDS: DILTIAZEM HCL 30MG TABLET PO SCH ×2 (14:00→21:10)
[2020-01-26 16:00] VITALS: BP 111/68
[2020-01-26 16:04] LABS: BASOPHILS % 1.1 % (0.0-2.0); HEMATOCRIT. 34.9 % (42.0-52.0); LYMPHOCYTES % 40.4 % (20.0-50.0); MEAN CORPUSCULAR HEMOGLOBIN 33.4 pg (28.0-32.0); MEAN CORPUSCULAR VOLUME 97.4 fL (80.0-94.0); MEAN PLATELET VOLUME 8.9 fl (7.4-10.4); MONOCYTES % 12.3 % (2.0-8.0); NEUTROPHILS % 38.2 % (40.0-76.0); PLATELET 106 x1000/uL (130-400); RED BLOOD CELL COUNT 3.58 mill/uL (4.7-6.1); RED CELL DISTRIBUTION WIDTH 16.7 % (11.6-14.6)
[2020-01-26] MEDS: HYDROCODONE/ACETAMINOPHEN 5/325MG TABLET PO PRN (16:29)
[2020-01-26] MEDS ORDERED: POTASSIUM CHLORIDE 20MEQ TABLET SR PO NR (17:00)
[2020-01-26 20:00] VITALS: BP 115/80
[2020-01-26] MEDS: FAMOTIDINE 20MG TABLET PO SCH (20:03)
[2020-01-26] MEDS: ATORVASTATIN CALCIUM 20MG TABLET PO SCH (21:10)
[2020-01-27] VITALS: BP 122/78
[2020-01-27 04:00] VITALS: BP 119/73
[2020-01-27] MEDS: DILTIAZEM HCL 30MG TABLET PO SCH (06:21)
[2020-01-27] MEDS: LEVOTHYROXINE SODIUM 125MCG TABLET PO SCH (06:21)
[2020-01-27 06:39] LABS: HEMATOCRIT. 31.7 % (42.0-52.0); HEMOGLOBIN. 10.9 g/dL (14.0-18.0); MEAN CORPUSCULAR HEMOGLOBIN 33.1 pg (28.0-32.0); MEAN CORPUSCULAR VOLUME 96.4 fL (80.0-94.0); MEAN PLATELET VOLUME 9.1 fl (7.4-10.4); PLATELET 93 x1000/uL (130-400); RED BLOOD CELL COUNT 3.29 mill/uL (4.7-6.1); RED CELL DISTRIBUTION WIDTH 16.4 % (11.6-14.6)
[2020-01-27 08:00] VITALS: BP 135/78
[2020-01-27] MEDS: TACROLIMUS 1MG CAPSULE PO SCH (09:02)
[2020-01-27] MEDS: FAMOTIDINE 20MG TABLET PO SCH (09:02)
[2020-01-27] MEDS: LISINOPRIL 20MG TABLET PO SCH (09:07)
[2020-01-27 12:00] VITALS: BP_SYST 141; BP_DIAS 62; BP_DIAS 89
[2020-01-27 13:16] VITALS: BP 141/89
[2020-01-27 14:42] LABS: PLATELET ESTIMATE DECREASED
== END 2020-01-27 15:10 | disposition home or self-care (01) | DRG 139 ==
LOC: ER 17:40 → MICUSO 21:03 → EDBEDREQTM 21:06 → EDBEDREQ 21:06 → 6WST 01-25 01:55
PROVIDERS: ADMIT Internal Medicine; ATTEND Internal Medicine
PROC: 0J2TXYZ Change Other Device in Trunk Subcutaneous Tissue and Fascia, External Approach (ICD-10-PCS; principal; 2020-01-25)
PROC: 5A1D70Z Performance of Urinary Filtration, Intermittent, Less than 6 Hours Per Day (ICD-10-PCS; 2020-01-25)
DX: J18.9 Pneumonia, unspecified organism (principal); D69.6 Thrombocytopenia, unspecified; E88.01 Alpha-1-antitrypsin deficiency; I12.0 Hypertensive chronic kidney disease with stage 5 chronic kidney disease or end stage renal disease; Z94.4 Liver transplant status; N18.6 End stage renal disease; I48.0 Paroxysmal atrial fibrillation; R07.89 Other chest pain; L97.919 Non-pressure chronic ulcer of unspecified part of right lower leg with unspecified severity; Z94.0 Kidney transplant status; Z99.2 Dependence on renal dialysis; D53.9 Nutritional anemia, unspecified; E03.9 Hypothyroidism, unspecified; Z88.5 Allergy status to narcotic agent; K76.9 Liver disease, unspecified; Z88.8 Allergy status to other drugs, medicaments and biological substances; L97.929 Non-pressure chronic ulcer of unspecified part of left lower leg with unspecified severity; N25.81 Secondary hyperparathyroidism of renal origin; K72.90 Hepatic failure, unspecified without coma
CPT/HCPCS: 36415; 36581; 71045; 77001; 80048; 80053; 80061; 80305; 82550; 82553; 82607; 82746; 83735; 83880; 84443; 84484; 85025; 93005; 93306; 93970; 96374; 99152; 99153; 99285; C1769; J0690; J1644; J1885; J2405; J2997; J3010; J3490; J7507; G0500

== ENCOUNTER 2020-02-04 22:31 | Inpatient (IN) | payer MEDICAID, OTHER ==
[~2020-02-04] VITALS: Ht 182.9 cm; Wt 61.2 kg
[~2020-02-04 22:31] MED LIST changes: -CALC0.253 PO; -DILT240C91 MT; -FAMO20TA8 PO; -FURO40TA5 MT; -NEOM7.5D8 LEFTEYE; -P20 PO; -PROG1 MT; -SEVE800T8 PO; -SODI650T PO; -TYLENOL CODEINE PO; +ZOLP10TA2 PO
[2020-02-04] MEDS ORDERED: ACETAMINOPHEN 325MG TABLET PO STA (22:51)
[2020-02-04] MEDS ORDERED: VANCOMYCIN 1 G PREMIX 200 ML IV ONE (23:00)
[2020-02-04] MEDS ORDERED: PIPERACILLIN/TAZ 3.375G PREMIX 50 ML IV ONE (23:00)
[2020-02-04] MEDS ORDERED: MORPHINE SULFATE 4 MG/ML CPJ (NOT FOR IM USE) IV STA (23:33)
[2020-02-04] MEDS ORDERED: ONDANSETRON HCL 4MG/2ML INJ IV STA (23:33)
[2020-02-04 23:41] LABS: HEMATOCRIT. 32.6 % (42.0-52.0); HEMOGLOBIN. 11.1 g/dL (14.0-18.0); MEAN CORPUSCULAR HEMOGLOBIN 33.7 pg (28.0-32.0); MEAN CORPUSCULAR VOLUME 98.7 fL (80.0-94.0); MEAN PLATELET VOLUME 9.8 fl (7.4-10.4); PLATELET 116 x1000/uL (130-400); RED CELL DISTRIBUTION WIDTH 15.9 % (11.6-14.6)
[2020-02-04 23:42] LABS: CHLORIDE 101 mEq/L (98-107)
[2020-02-04] MEDS ORDERED: DILTIAZEM HCL 5MG/ML 5ML VIAL IV ONE (23:45)
[2020-02-05] MEDS ORDERED: DILTIAZEM HCL 120MG CAPSULE CD 24HR PO ONE (00:45)
[2020-02-05 02:07] LABS: ATYPICAL LYMPHOCYTES 1
[2020-02-05 02:08] LABS: PLATELET ESTIMATE SLIGHTLY DECREASED
[2020-02-05] MEDS ORDERED: HYDROCODONE/ACETAMINOPHEN 5/325MG TABLET PO ONE (03:45)
[2020-02-05 06:55] VITALS: BP 107/70
[2020-02-05] MEDS ORDERED: LEVO125T8 PO (07:31)
[2020-02-05 08:00] VITALS: BP 113/86
[2020-02-05] MEDS ORDERED: PIPERACILLIN/TAZOBACTAM 3.375 G in DEXT 5% WATER 100 ML IV SCH (09:30)
[2020-02-05] MEDS ORDERED: ACETAMINOPHEN 325MG TABLET PO PRN (09:30)
[2020-02-05] MEDS ORDERED: DILTIAZEM HCL 5MG/ML 5ML VIAL IV PRN (10:45)
[2020-02-05] MEDS: METOPROLOL TARTRATE 25MG TABLET PO SCH ×2 (10:45→21:00)
[2020-02-05] MEDS: PIPERACILLIN/TAZOBACTAM 2.25 G in DEXTROSE 5% WATER 50 ML IV SCH ×3 (11:21→21:12)
[2020-02-05 12:00] VITALS: BP 94/69
[2020-02-05] MEDS: ENOXAPARIN 60MG/0.6ML SYR SUBCUT SCH (12:28)
[2020-02-05 16:00] VITALS: BP 101/54
[2020-02-05] MEDS: ONDANSETRON HCL 4MG/2ML INJ IV PRN (18:24)
[2020-02-05] MEDS: PREDNISONE 5MG TABLET PO SCH (18:45)
[2020-02-05 20:00] VITALS: BP 113/83
[2020-02-05] MEDS: ATORVASTATIN CALCIUM 20MG TABLET PO SCH (21:12)
[2020-02-05] MEDS: TACROLIMUS 1MG CAPSULE PO SCH (21:23)
[2020-02-05] MEDS: ZOLPIDEM TARTRATE 5MG TABLET PO PRN (21:23)
[2020-02-06] VITALS: BP 108/82
[2020-02-06 04:00] VITALS: BP 121/86
[2020-02-06] MEDS: PIPERACILLIN/TAZOBACTAM 2.25 G in DEXTROSE 5% WATER 50 ML IV SCH ×4 (04:20→21:56)
[2020-02-06] MEDS: LEVOTHYROXINE SODIUM 125MCG TABLET PO SCH (06:25)
[2020-02-06 06:49] LABS: BASOPHILS % 0.7 % (0.0-2.0); EOSINOPHILS % 12.2 % (0.0-5.0); HEMATOCRIT. 33.9 % (42.0-52.0); HEMOGLOBIN. 11.5 g/dL (14.0-18.0); LYMPHOCYTES % 32.9 % (20.0-50.0); MEAN CORPUSCULAR HEMOGLOBIN 33.3 pg (28.0-32.0); MEAN CORPUSCULAR VOLUME 98.2 fL (80.0-94.0); MEAN PLATELET VOLUME 10.1 fl (7.4-10.4); MONOCYTES % 10.1 % (2.0-8.0); NEUTROPHILS % 44.1 % (40.0-76.0); PLATELET 125 x1000/uL (130-400); RED BLOOD CELL COUNT 3.45 mill/uL (4.7-6.1); RED CELL DISTRIBUTION WIDTH 15.7 % (11.6-14.6)
[2020-02-06 09:19] VITALS: BP 130/81
[2020-02-06] MEDS: PREDNISONE 5MG TABLET PO SCH (09:21)
[2020-02-06] MEDS: TACROLIMUS 1MG CAPSULE PO SCH ×2 (09:22→21:56)
[2020-02-06] MEDS: METOPROLOL TARTRATE 25MG TABLET PO SCH (09:29)
[2020-02-06] MEDS ORDERED: HYDROCODONE/ACETAMINOPHEN 5/325MG TABLET PO PRN (10:45)
[2020-02-06 11:35] VITALS: BP 122/88
[2020-02-06] MEDS: ENOXAPARIN 60MG/0.6ML SYR SUBCUT SCH (11:37)
[2020-02-06] MEDS ORDERED: VANCOMYCIN 750 MG PREMIX 150 ML IV SCH (12:00)
[2020-02-06 16:03] VITALS: BP 111/73
[2020-02-06] MEDS: HYDROCODONE/ACETAMINOPHEN 10/325MG TABLET PO PRN (16:05)
[2020-02-06 20:00] VITALS: BP 118/81
[2020-02-06] MEDS: ZOLPIDEM TARTRATE 5MG TABLET PO PRN (21:55)
[2020-02-06] MEDS: METOPROLOL TARTRATE 50MG TABLET PO SCH (21:56)
[2020-02-06] MEDS: ATORVASTATIN CALCIUM 20MG TABLET PO SCH (21:56)
[2020-02-07] VITALS: BP 104/75
[2020-02-07 04:00] VITALS: BP 114/73
[2020-02-07] MEDS: PIPERACILLIN/TAZOBACTAM 2.25 G in DEXTROSE 5% WATER 50 ML IV SCH ×4 (04:29→22:25)
[2020-02-07] MEDS: LEVOTHYROXINE SODIUM 125MCG TABLET PO SCH (06:17)
[2020-02-07 06:55] LABS: BASOPHILS % 0.9 % (0.0-2.0); EOSINOPHILS % 12.2 % (0.0-5.0); HEMATOCRIT. 30.3 % (42.0-52.0); HEMOGLOBIN. 10.2 g/dL (14.0-18.0); LYMPHOCYTES % 40.3 % (20.0-50.0); MEAN CORPUSCULAR HEMOGLOBIN 33.2 pg (28.0-32.0); MEAN PLATELET VOLUME 10.1 fl (7.4-10.4); MONOCYTES % 8.4 % (2.0-8.0); NEUTROPHILS % 38.2 % (40.0-76.0); PLATELET 121 x1000/uL (130-400); RED BLOOD CELL COUNT 3.06 mill/uL (4.7-6.1); RED CELL DISTRIBUTION WIDTH 15.9 % (11.6-14.6)
[2020-02-07 08:00] VITALS: BP 131/90
[2020-02-07] MEDS: ONDANSETRON HCL 4MG/2ML INJ IV PRN (09:41)
[2020-02-07] MEDS: HYDROCODONE/ACETAMINOPHEN 10/325MG TABLET PO PRN (09:43)
[2020-02-07] MEDS: TACROLIMUS 1MG CAPSULE PO SCH ×2 (09:44→22:24)
[2020-02-07] MEDS: METOPROLOL TARTRATE 50MG TABLET PO SCH ×2 (09:44→22:25)
[2020-02-07] MEDS: PREDNISONE 5MG TABLET PO SCH (09:45)
[2020-02-07] MEDS: ENOXAPARIN 60MG/0.6ML SYR SUBCUT SCH (11:30)
[2020-02-07 12:00] VITALS: BP 118/72
[2020-02-07] MEDS ORDERED: APIX2.5T MT (12:29)
[2020-02-07] MEDS ORDERED: METO-539 PO (12:29)
[2020-02-07 16:00] VITALS: BP 101/67
[2020-02-07 20:00] VITALS: BP 120/71
[2020-02-07 22:17] LABS: HEPATITIS B SURFACE ANTIGEN NEGATIVE
[2020-02-07] MEDS: ZOLPIDEM TARTRATE 5MG TABLET PO PRN (22:25)
[2020-02-07] MEDS: ATORVASTATIN CALCIUM 20MG TABLET PO SCH (22:25)
[2020-02-07 22:46] LABS: HEPATITIS A AB IGM NEGATIVE (NEGATIVE)
[2020-02-08] VITALS: BP 134/94
[2020-02-08] MEDS: PIPERACILLIN/TAZOBACTAM 2.25 G in DEXTROSE 5% WATER 50 ML IV SCH ×2 (03:49→09:13)
[2020-02-08 04:00] VITALS: BP 136/87
[2020-02-08] MEDS: LEVOTHYROXINE SODIUM 125MCG TABLET PO SCH (06:14)
[2020-02-08 08:00] VITALS: BP 134/90
[2020-02-08] MEDS: METOPROLOL TARTRATE 50MG TABLET PO SCH (09:12)
[2020-02-08] MEDS: PREDNISONE 5MG TABLET PO SCH (09:12)
[2020-02-08] MEDS ORDERED: TACROLIMUS 0.5 MG CAPSULE PO NR (10:30)
[2020-02-08] MEDS: ENOXAPARIN 60MG/0.6ML SYR SUBCUT SCH (10:35)
[2020-02-08 12:02] VITALS: BP 123/85
[2020-02-08] MEDS: VANCOMYCIN 750 MG PREMIX 150 ML IV NR ×2 (12:54→12:55)
[2020-02-08 13:21] VITALS: BP 123/85
[2020-02-09 05:11] LABS: HIV SCREEN 4G Non Reactive (Non Reactive)
[2020-02-09] MEDS ORDERED: TACROLIMUS 1MG CAPSULE PO SCH (09:00)
== END 2020-02-08 14:47 | disposition home or self-care (01) | DRG 720 ==
LOC: ER 22:34 → 8WST 02-05 02:43 → ENRESERV 02-05 06:12
PROVIDERS: ADMIT Internal Medicine; ATTEND Internal Medicine
PROC: 5A1D70Z Performance of Urinary Filtration, Intermittent, Less than 6 Hours Per Day (ICD-10-PCS; principal; 2020-02-07)
DX: A41.9 Sepsis, unspecified organism (principal); T86.11 Kidney transplant rejection; D61.818 Other pancytopenia; Z94.4 Liver transplant status; N17.9 Acute kidney failure, unspecified; I12.0 Hypertensive chronic kidney disease with stage 5 chronic kidney disease or end stage renal disease; N18.6 End stage renal disease; I48.0 Paroxysmal atrial fibrillation; E44.1 Mild protein-calorie malnutrition; K76.9 Liver disease, unspecified; E78.00 Pure hypercholesterolemia, unspecified; E03.9 Hypothyroidism, unspecified; E78.5 Hyperlipidemia, unspecified; N25.81 Secondary hyperparathyroidism of renal origin; I99.9 Unspecified disorder of circulatory system; Z20.828 Contact with and (suspected) exposure to other viral communicable diseases; J06.9 Acute upper respiratory infection, unspecified; R07.81 Pleurodynia; Z94.0 Kidney transplant status; Z99.2 Dependence on renal dialysis; Z68.1 Body mass index [BMI] 19.9 or less, adult; Z90.49 Acquired absence of other specified parts of digestive tract; Z88.6 Allergy status to analgesic agent; Z79.899 Other long term (current) drug therapy
CPT/HCPCS: 36415; 71045; 80048; 80053; 80202; 83735; 84145; 84484; 85025; 86705; 86709; 86803; 87340; 87389; 93005; 99291; J1650; J2270; J2405; J2543; J3370; J3490; J7060; J7507; J7512; U0003-CS

== ENCOUNTER 2021-04-20 08:02 | Emergency (ER) | payer OTHER, MEDICAID ==
[~2021-04-20] VITALS: Ht 167.6 cm; Wt 80.0 kg
[~2021-04-20 08:02] MED LIST changes: +APIX2.5T MT; +APIX2.5T PO; +ATOR20TA65 PO; -LEVO112T7 PO; +LEVO125T8 PO; -LISI-604 MT; +METO-385 PO; +METO-539 PO; -PROG1 PO; +TACR1CAP2 PO; +TACR5CAP2 PO
[2021-04-20] MEDS ORDERED: LORAZEPAM 1MG TABLET PO ONE (08:45)
[2021-04-20] MEDS ORDERED: ASPIRIN 325MG EC TABLET PO ONE (08:45)
[2021-04-20 09:07] LABS: HEMATOCRIT. 29.4 % (42.0-52.0); HEMOGLOBIN. 10.4 g/dL (14.0-18.0); MEAN CORPUSCULAR HEMOGLOBIN 34.7 pg (28.0-32.0); MEAN CORPUSCULAR VOLUME 97.8 fL (80.0-94.0); RED BLOOD CELL COUNT 3.01 mill/uL (4.7-6.1); RED CELL DISTRIBUTION WIDTH 17.1 % (11.6-14.6)
[2021-04-20 09:14] LABS: CHLORIDE 97 mEq/L (98-107)
[2021-04-20 09:18] LABS: INR 1.1; PARTIAL THROMBOPLASTIN TIME 26.7 sec (23.4-31.0); PROTHROMBIN TIME 11.9 sec (9.6-11.0)
[2021-04-20 10:23] LABS: PLATELET ESTIMATE DECREASED
[2021-04-20 10:24] LABS: PLATELET 88 x1000/uL (130-400)
[2021-04-20 11:25] VITALS: BP 111/80
== END 2021-04-20 11:59 | disposition home or self-care (01) ==
LOC: ER 08:08
DX: R07.89 Other chest pain (principal); I10 Essential (primary) hypertension; E78.00 Pure hypercholesterolemia, unspecified; Z88.6 Allergy status to analgesic agent; Z88.8 Allergy status to other drugs, medicaments and biological substances; Z88.9 Allergy status to unspecified drugs, medicaments and biological substances; Z79.899 Other long term (current) drug therapy; Z86.39 Personal history of other endocrine, nutritional and metabolic disease
CPT/HCPCS: 36415; 71045; 80053; 83880; 84484; 85025; 93005; 99285

== ENCOUNTER 2022-02-27 09:45 | Inpatient (IN) | payer OTHER, MEDICAID ==
[~2022-02-27] VITALS: Ht 182.9 cm; Wt 54.9 kg
[2022-02-27] MEDS ORDERED: MORPHINE SULFATE 4 MG/ML CPJ (NOT FOR IM USE) IV STA (09:59)
[2022-02-27] MEDS ORDERED: ONDANSETRON HCL 4MG/2ML INJ IV ONE (10:15)
[2022-02-27 10:21] LABS: BASOPHILS % 1.2 % (0.0-2.0); EOSINOPHILS % 7.7 % (0.0-5.0); HEMATOCRIT. 38.8 % (42.0-52.0); HEMOGLOBIN. 13.3 g/dL (14.0-18.0); MEAN CORPUSCULAR HEMOGLOBIN 32.6 pg (28.0-32.0); MEAN CORPUSCULAR VOLUME 95.2 fL (80.0-94.0); MEAN PLATELET VOLUME 10.1 fl (7.4-10.4); MONOCYTES % 14.1 % (2.0-8.0); PLATELET 83 x1000/uL (130-400); RED BLOOD CELL COUNT 4.07 mill/uL (4.7-6.1); RED CELL DISTRIBUTION WIDTH 15.2 % (11.6-14.6)
[2022-02-27 10:27] LABS: CHLORIDE 95 mEq/L (98-107)
[2022-02-27] MEDS ORDERED: MORPHINE SULFATE 4 MG/ML CPJ (NOT FOR IM USE) IV ONE (13:15)
[2022-02-27] MEDS ORDERED: DILTIAZEM HCL 5MG/ML 5ML VIAL IV NR ×2 (15:45→18:45)
[2022-02-27 17:00] VITALS: BP 125/70
[2022-02-27 17:18] VITALS: BP 125/88
[2022-02-27] MEDS ORDERED: NALOXONE HCL 0.4MG/ML VIAL IV PRN (17:45)
[2022-02-27] MEDS ORDERED: ZOLPIDEM TARTRATE 5MG TABLET PO PRN (17:45)
[2022-02-27] MEDS: DILTIAZEM HCL 30MG TABLET PO SCH (17:59)
[2022-02-27] MEDS ORDERED: CALC667T2 PO (18:07)
[2022-02-27] MEDS ORDERED: FOLI0.8T23 MT (18:07)
[2022-02-27] MEDS ORDERED: FAMO-135 PO (18:07)
[2022-02-27 20:00] VITALS: BP 100/61
[2022-02-27] MEDS ORDERED: FAMOTIDINE 20MG TABLET PO SCH (21:00)
[2022-02-27 21:46] LABS: CLARITY URINE CLEAR (CLEAR); COLOR URINE YELLOW (YELLOW); KETONES URINE NEGATIVE (NEGATIVE); LEUKOCYTE ESTERASE URINE NEGATIVE (NEGATIVE); NITRITE URINE NEGATIVE (NEGATIVE); OCCULT BLOOD URINE NEGATIVE (NEGATIVE); PH URINE 8.5 (4.5-8.0); PROTEIN URINE 1+ (NEGATIVE); SPECIFIC GRAVITY URINE 1.006 (1.005-1.030); UROBILINOGEN URINE 0.2 E.U./dL (0.2-1.0)
[2022-02-27 22:01] LABS: *AMPHETAMINES SCREEN URINE NEGATIVE (NEGATIVE); *BARBITURATES SCREEN URINE NEGATIVE (NEGATIVE); *BENZODIAZEPINES SCREEN URINE NEGATIVE (NEGATIVE); *COCAINE SCREEN URINE NEGATIVE (NEGATIVE); CANNABINOID URINE SCREEN NEGATIVE (NEGATIVE); METHADONE URINE SCREEN NEGATIVE (NEGATIVE); OPIATES URINE SCREEN PRESUMTIVE POSITIVE (NEGATIVE); PHENCYCLIDINE URINE SCREEN NEGATIVE (NEGATIVE)
[2022-02-28] VITALS (7 sets, daily range): BP systolic 97–131; BP diastolic 62–73
[2022-02-28] MEDS: DILTIAZEM HCL 30MG TABLET PO SCH ×5 (00:51→23:50)
[2022-02-28 07:42] LABS: BASOPHILS % 0.8 % (0.0-2.0); EOSINOPHILS % 8.4 % (0.0-5.0); HEMATOCRIT. 38.6 % (42.0-52.0); HEMOGLOBIN. 13.1 g/dL (14.0-18.0); LYMPHOCYTES % 49.7 % (20.0-50.0); MEAN CORPUSCULAR HEMOGLOBIN 32.7 pg (28.0-32.0); MEAN PLATELET VOLUME 9.3 fl (7.4-10.4); MONOCYTES % 13.2 % (2.0-8.0); NEUTROPHILS % 27.9 % (40.0-76.0); PLATELET 70 x1000/uL (130-400); RED BLOOD CELL COUNT 4.02 mill/uL (4.7-6.1); RED CELL DISTRIBUTION WIDTH 15.2 % (11.6-14.6)
[2022-02-28 08:23] LABS: T4 FREE 0.94 ng/dL (0.76-1.46)
[2022-02-28] MEDS: FOLIC ACID/VITAMIN B COMP W-C TABLET PO SCH (08:44)
[2022-02-28] MEDS: CALCIUM ACETATE 667MG CAPSULE PO SCH ×3 (08:45→18:03)
[2022-02-28] MEDS: TACROLIMUS 1MG CAPSULE PO SCH ×2 (08:45→18:03)
[2022-02-28] MEDS: HYDROCODONE/ACETAMINOPHEN 5/325MG TABLET PO PRN (12:33)
[2022-02-28] MEDS: LEVOTHYROXINE SODIUM 125MCG TABLET PO SCH (12:38)
[2022-02-28 18:50] LABS: HEPATITIS B SURFACE ANTIGEN NEGATIVE
[2022-02-28] MEDS: FAMOTIDINE 20MG TABLET PO SCH (20:40)
[2022-03-01] VITALS (10 sets, daily range): BP systolic 102–122; BP diastolic 54–85
[2022-03-01] MEDS: DILTIAZEM HCL 30MG TABLET PO SCH ×4 (06:11→23:59)
[2022-03-01] MEDS: LEVOTHYROXINE SODIUM 125MCG TABLET PO SCH (06:12)
[2022-03-01] MEDS: FOLIC ACID/VITAMIN B COMP W-C TABLET PO SCH (08:22)
[2022-03-01] MEDS: TACROLIMUS 1MG CAPSULE PO SCH ×2 (08:22→18:12)
[2022-03-01] MEDS: CALCIUM ACETATE 667MG CAPSULE PO SCH ×3 (08:22→18:11)
[2022-03-01] MEDS: MULTAQ PO SCH ×2 (08:59→17:07)
[2022-03-01 12:16] LABS: BASOPHILS % 0.8 % (0.0-2.0); EOSINOPHILS % 6.9 % (0.0-5.0); HEMATOCRIT. 39.6 % (42.0-52.0); HEMOGLOBIN. 13.3 g/dL (14.0-18.0); LYMPHOCYTES % 43.9 % (20.0-50.0); MEAN CORPUSCULAR HEMOGLOBIN 32.8 pg (28.0-32.0); MEAN CORPUSCULAR VOLUME 97.6 fL (80.0-94.0); MEAN PLATELET VOLUME 9.2 fl (7.4-10.4); MONOCYTES % 11.6 % (2.0-8.0); NEUTROPHILS % 36.8 % (40.0-76.0); PLATELET 77 x1000/uL (130-400); RED BLOOD CELL COUNT 4.06 mill/uL (4.7-6.1); RED CELL DISTRIBUTION WIDTH 15.2 % (11.6-14.6)
[2022-03-01] MEDS: HYDROCODONE/ACETAMINOPHEN 5/325MG TABLET PO PRN (12:22)
[2022-03-01] MEDS ORDERED: SODIUM POLYSTYRENE SULFONATE 15 G/60 ML BOT PO SCH (13:00)
[2022-03-01] MEDS: FAMOTIDINE 20MG TABLET PO SCH (21:01)
[2022-03-02] VITALS (12 sets, daily range): BP systolic 95–130; BP diastolic 53–87
[2022-03-02] MEDS: HYDROCODONE/ACETAMINOPHEN 5/325MG TABLET PO PRN ×2 (02:01→12:42)
[2022-03-02] MEDS: LEVOTHYROXINE SODIUM 125MCG TABLET PO SCH (05:51)
[2022-03-02] MEDS: DILTIAZEM HCL 30MG TABLET PO SCH ×3 (05:52→18:13)
[2022-03-02 06:17] LABS: BASOPHILS % 0.8 % (0.0-2.0); EOSINOPHILS % 5.3 % (0.0-5.0); HEMATOCRIT. 37.9 % (42.0-52.0); HEMOGLOBIN. 12.7 g/dL (14.0-18.0); LYMPHOCYTES % 48.5 % (20.0-50.0); MEAN CORPUSCULAR HEMOGLOBIN 32.6 pg (28.0-32.0); MEAN CORPUSCULAR VOLUME 96.8 fL (80.0-94.0); MEAN PLATELET VOLUME 9.2 fl (7.4-10.4); MONOCYTES % 13.2 % (2.0-8.0); NEUTROPHILS % 32.2 % (40.0-76.0); PLATELET 73 x1000/uL (130-400); RED BLOOD CELL COUNT 3.92 mill/uL (4.7-6.1); RED CELL DISTRIBUTION WIDTH 15.2 % (11.6-14.6)
[2022-03-02] MEDS: TACROLIMUS 1MG CAPSULE PO SCH ×2 (07:52→18:13)
[2022-03-02] MEDS: CALCIUM ACETATE 667MG CAPSULE PO SCH ×3 (07:52→18:13)
[2022-03-02] MEDS: FOLIC ACID/VITAMIN B COMP W-C TABLET PO SCH (07:52)
[2022-03-02] MEDS: MULTAQ PO SCH ×2 (09:03→17:00)
[2022-03-02] MEDS: FAMOTIDINE 20MG TABLET PO SCH (20:33)
[2022-03-03] VITALS (10 sets, daily range): BP systolic 96–126; BP diastolic 60–94
[2022-03-03 05:57] LABS: BASOPHILS % 0.9 % (0.0-2.0); EOSINOPHILS % 7.1 % (0.0-5.0); HEMATOCRIT. 34.4 % (42.0-52.0); HEMOGLOBIN. 11.7 g/dL (14.0-18.0); LYMPHOCYTES % 55.3 % (20.0-50.0); MEAN CORPUSCULAR HEMOGLOBIN 32.9 pg (28.0-32.0); MEAN CORPUSCULAR VOLUME 96.7 fL (80.0-94.0); MEAN PLATELET VOLUME 9.3 fl (7.4-10.4); NEUTROPHILS % 25.7 % (40.0-76.0); PLATELET 65 x1000/uL (130-400); RED BLOOD CELL COUNT 3.56 mill/uL (4.7-6.1); RED CELL DISTRIBUTION WIDTH 15.6 % (11.6-14.6)
[2022-03-03] MEDS: DILTIAZEM HCL 30MG TABLET PO SCH ×4 (05:58→18:00)
[2022-03-03] MEDS: TACROLIMUS 1MG CAPSULE PO SCH ×2 (08:24→16:15)
[2022-03-03] MEDS: CALCIUM ACETATE 667MG CAPSULE PO SCH ×3 (08:24→16:15)
[2022-03-03] MEDS: MULTAQ PO SCH ×2 (08:25→16:16)
[2022-03-03] MEDS: FOLIC ACID/VITAMIN B COMP W-C TABLET PO SCH (08:25)
[2022-03-03] MEDS: LEVOTHYROXINE SODIUM 125MCG TABLET PO SCH (08:25)
[2022-03-03] MEDS: HYDROCODONE/ACETAMINOPHEN 5/325MG TABLET PO PRN (12:26)
[2022-03-03] MEDS ORDERED: DIPHENHYDRAMINE 25MG CAPSULE PO PRN (16:00)
[2022-03-03] MEDS: FAMOTIDINE 20MG TABLET PO SCH (20:43)
[2022-03-04] VITALS (7 sets, daily range): BP systolic 89–123; BP diastolic 54–91
[2022-03-04] MEDS: DILTIAZEM HCL 30MG TABLET PO SCH ×4 (06:00→18:00)
[2022-03-04] MEDS: LEVOTHYROXINE SODIUM 125MCG TABLET PO SCH (08:40)
[2022-03-04] MEDS: TACROLIMUS 1MG CAPSULE PO SCH ×2 (08:40→16:22)
[2022-03-04] MEDS: CALCIUM ACETATE 667MG CAPSULE PO SCH ×3 (08:40→16:22)
[2022-03-04] MEDS: FOLIC ACID/VITAMIN B COMP W-C TABLET PO SCH (08:43)
[2022-03-04] MEDS: HYDROCODONE/ACETAMINOPHEN 5/325MG TABLET PO PRN (11:57)
[2022-03-04] MEDS ORDERED: NON FORMULARY PATIENT HOME MED XX ONE (15:15)
[2022-03-04 16:00] LABS: HEPATITIS B SURFACE ANTIGEN NEGATIVE
[2022-03-04] MEDS: MULTAQ PO SCH ×2 (16:22→23:57)
[2022-03-04] MEDS: FAMOTIDINE 20MG TABLET PO SCH (23:57)
[2022-03-05] VITALS (8 sets, daily range): BP systolic 96–117; BP diastolic 64–89
[2022-03-05] MEDS ORDERED: NON FORMULARY PATIENT HOME MED XX SCH
[2022-03-05] MEDS: DILTIAZEM HCL 30MG TABLET PO SCH ×2 (00:03→06:00)
[2022-03-05 06:20] LABS: CHLORIDE 104 mEq/L (98-107)
[2022-03-05 06:27] LABS: BASOPHILS % 0.9 % (0.0-2.0); EOSINOPHILS % 6.2 % (0.0-5.0); HEMATOCRIT. 34.9 % (42.0-52.0); LYMPHOCYTES % 49.1 % (20.0-50.0); MEAN CORPUSCULAR HEMOGLOBIN 33.1 pg (28.0-32.0); MEAN CORPUSCULAR VOLUME 96.6 fL (80.0-94.0); MEAN PLATELET VOLUME 9.5 fl (7.4-10.4); MONOCYTES % 11.8 % (2.0-8.0); PLATELET 74 x1000/uL (130-400); RED BLOOD CELL COUNT 3.61 mill/uL (4.7-6.1)
[2022-03-05] MEDS: LEVOTHYROXINE SODIUM 125MCG TABLET PO SCH ×2 (07:30→09:51)
[2022-03-05] MEDS: CALCIUM ACETATE 667MG CAPSULE PO SCH (09:00)
[2022-03-05] MEDS: TACROLIMUS 1MG CAPSULE PO SCH ×2 (09:00→09:51)
[2022-03-05] MEDS: MULTAQ PO SCH ×2 (09:00→09:51)
[2022-03-05] MEDS: FOLIC ACID/VITAMIN B COMP W-C TABLET PO SCH (09:00)
== END 2022-03-05 12:45 | disposition home or self-care (01) | DRG 308 ==
LOC: ER 09:45 → 7WST 13:22 → UNDOADMIN 14:19 → ENRESERV 15:31 → 5EST 02-28 15:37
PROVIDERS: ADMIT Internal Medicine; ATTEND Internal Medicine
PROC: 5A1D70Z Performance of Urinary Filtration, Intermittent, Less than 6 Hours Per Day (ICD-10-PCS; principal; 2022-03-01)
PROC: 5A1D70Z Performance of Urinary Filtration, Intermittent, Less than 6 Hours Per Day (ICD-10-PCS; 2022-03-04)
DX: I48.4 Atypical atrial flutter (principal); N18.6 End stage renal disease; I12.0 Hypertensive chronic kidney disease with stage 5 chronic kidney disease or end stage renal disease; Z94.4 Liver transplant status; N25.81 Secondary hyperparathyroidism of renal origin; N17.9 Acute kidney failure, unspecified; T86.12 Kidney transplant failure; D61.818 Other pancytopenia; D84.9 Immunodeficiency, unspecified; I48.0 Paroxysmal atrial fibrillation; Z20.822 Contact with and (suspected) exposure to COVID-19; E03.9 Hypothyroidism, unspecified; D69.6 Thrombocytopenia, unspecified; F32.A Depression, unspecified; D63.1 Anemia in chronic kidney disease; E87.5 Hyperkalemia; E78.5 Hyperlipidemia, unspecified; I34.0 Nonrheumatic mitral (valve) insufficiency; I27.20 Pulmonary hypertension, unspecified; E88.01 Alpha-1-antitrypsin deficiency; E78.00 Pure hypercholesterolemia, unspecified; Y83.0 Surgical operation with transplant of whole organ as the cause of abnormal reaction of the patient, or of later complication, without mention of misadventure at the time of the procedure; Z79.899 Other long term (current) drug therapy; Z99.2 Dependence on renal dialysis; Z91.09 Other allergy status, other than to drugs and biological substances; Z88.3 Allergy status to other anti-infective agents; K72.10 Chronic hepatic failure without coma
CPT/HCPCS: 36415; 71045; 80048; 80053; 80305; 81003; 83615; 83735; 83880; 84439; 84443; 84481; 84484; 85025; 86705; 86709; 86803; 87340; 87426; 93005; 93306; 99285; J2270; J2405; J3490; J7507; Q0163

== ENCOUNTER 2022-03-18 05:11 | Emergency (ER) | payer OTHER, MEDICAID ==
[~2022-03-18] VITALS: Ht 177.8 cm; Wt 69.0 kg
[~2022-03-18 05:11] MED LIST changes: -APIX2.5T MT; -APIX2.5T PO; -ATOR20TA65 MT; -ATOR20TA65 PO; +CALC667T2 PO; +FAMO-135 PO; +FOLI0.8T23 MT; -METO-385 PO; -METO-539 PO; -TACR1CAP2 PO
[2022-03-18 05:54] LABS: BASOPHILS % 1.2 % (0.0-2.0); EOSINOPHILS % 7.5 % (0.0-5.0); HEMATOCRIT. 34.6 % (42.0-52.0); HEMOGLOBIN. 11.7 g/dL (14.0-18.0); LYMPHOCYTES % 40.4 % (20.0-50.0); MEAN CORPUSCULAR HEMOGLOBIN 32.7 pg (28.0-32.0); MEAN CORPUSCULAR VOLUME 96.7 fL (80.0-94.0); MONOCYTES % 10.5 % (2.0-8.0); NEUTROPHILS % 40.4 % (40.0-76.0); PLATELET 87 x1000/uL (130-400); RED BLOOD CELL COUNT 3.58 mill/uL (4.7-6.1); RED CELL DISTRIBUTION WIDTH 14.5 % (11.6-14.6)
[2022-03-18 06:01] LABS: CHLORIDE 107 mEq/L (98-107)
[2022-03-18 11:29] VITALS: BP 120/80
== END 2022-03-18 11:29 | disposition home or self-care (01) ==
LOC: ER 05:11
DX: I12.0 Hypertensive chronic kidney disease with stage 5 chronic kidney disease or end stage renal disease (principal); N18.6 End stage renal disease; R51.9 Headache, unspecified; E03.9 Hypothyroidism, unspecified; E88.01 Alpha-1-antitrypsin deficiency; Z94.4 Liver transplant status; Z94.0 Kidney transplant status; Z99.2 Dependence on renal dialysis; Z88.6 Allergy status to analgesic agent; Z88.0 Allergy status to penicillin
CPT/HCPCS: 36415; 71045; 76604; 80053; 83880; 84484; 85025; 93005; 93880; 99285